=== PATIENT | male | born 1995 | race Caucasian/White ===

== ENCOUNTER 2020-03-26 13:34 | Emergency (ER) | payer SELFPAY ==
[~2020-03-26 13:34] MED LIST: FLEXERIL10 MG PO; VOLTAREN **OUT75 MG PO
[2020-03-26] MEDS ORDERED: BACTRIM DS TAB1 EACH PO (15:40)
== END 2020-03-26 16:40 | disposition home or self-care (01) ==
LOC: FER 13:34
DX: L03.311 Cellulitis of abdominal wall (principal)
CPT/HCPCS: 99283; J1885